=== PATIENT | male | born 1945 | race Caucasian/White ===

== ENCOUNTER 2017-12-08 16:03 | Inpatient (IN) | payer MEDICARE ==
[~2017-12-08] VITALS: Ht 170.2 cm; Wt 101.0 kg
[2017-12-08 17:30] VITALS: BP 101/58
[2017-12-08] MEDS: PLEASE ENTER ALLERGIES MC SCH ×2 (18:00→23:48)
[2017-12-08] MEDS ORDERED: LACTATED RINGERS 500 ML IVBOLUS ONE (18:00)
[2017-12-08] MEDS: INSULIN REGULAR 100 UNITS/ML, 3ML VIAL SQ-INSULIN SCH ×2 (18:00→20:35)
[2017-12-08] MEDS ORDERED: DEXTROSE 4 GM TAB.CHEW PO PRN (18:00)
[2017-12-08] MEDS ORDERED: DEXTROSE 50%, 50ML SYRINGE IVPush PRN (18:00)
[2017-12-08] MEDS: PLEASE ENTER HEIGHT AND WEIGHT MC SCH ×2 (18:00→23:48)
[2017-12-08] MEDS ORDERED: GLUCAGON 1 MG IM PRN (18:00)
[2017-12-08] MEDS ORDERED: ONDANSETRON 2MG/ML, 2ML IVPush PRN (18:00)
[2017-12-08 20:00] VITALS: BP 93/54
[2017-12-08] MEDS: PIPERACILLIN/TAZO/PMX 3.375GM 50 ML IV SCH (22:04)
[2017-12-08] MEDS: SODIUM CHLORIDE FLUSH 10ML SYR IVF SCH (22:04)
[2017-12-08] MEDS: LACTATED RINGERS 1,000 ML IV SCH (22:04)
[2017-12-08 22:10] VITALS: BP 110/62
[2017-12-09 02:00] VITALS: BP 116/68
[2017-12-09] MEDS ORDERED: FOLI-17 PO (04:13)
[2017-12-09] MEDS ORDERED: FURO20TA3 PO (04:13)
[2017-12-09] MEDS ORDERED: HYDR25TA6 PO (04:13)
[2017-12-09] MEDS ORDERED: BENA40TA2 PO (04:13)
[2017-12-09] MEDS ORDERED: TERA10CA3 PO (04:13)
[2017-12-09] MEDS ORDERED: FERR325T5 PO (04:13)
[2017-12-09] MEDS ORDERED: SIMV20TA3 PO (04:13)
[2017-12-09] MEDS ORDERED: ASPI-496 PO (04:13)
[2017-12-09] MEDS ORDERED: AMLO10TA2 PO (04:13)
[2017-12-09] MEDS ORDERED: METF10002 PO (04:13)
[2017-12-09] MEDS ORDERED: LOPE2CAP3 PO (04:13)
[2017-12-09] MEDS ORDERED: POTA10TA11 PO (04:13)
[2017-12-09] MEDS: LACTATED RINGERS 1,000 ML IV SCH (06:04)
[2017-12-09] MEDS: PIPERACILLIN/TAZO/PMX 3.375GM 50 ML IV SCH ×3 (06:05→21:10)
[2017-12-09] MEDS: INSULIN REGULAR 100 UNITS/ML, 3ML VIAL SQ-INSULIN SCH ×4 (07:00→20:32)
[2017-12-09 07:06] LABS: MEAN CORPUSCULAR HEMOGLOBIN 30.1 pg (27.5-34.5); MEAN CORPUSCULAR HGB CONC 33.1 g/dL (33.2-36.2); MEAN PLATELET VOLUME 9.1 fL (7.4-10.4); PLATELET COUNT 129 x10^3/uL (130-400); RED BLOOD COUNT 4.13 x10^6/uL (4.38-5.82); RED CELL DISTRIBUTION WIDTH 14.1 % (9.4-14.8)
[2017-12-09 07:16] LABS: ANION GAP 10 mmol/L (5-15); CALCIUM 7.6 mg/dL (8.5-10.1); CHLORIDE 103 mmol/L (98-107); CREATININE 1.56 mg/dL (0.7-1.3)
[2017-12-09 08:12] LABS: MD YES
[2017-12-09 08:17] LABS: BANDS%(MANUAL) 12 % (0-7); BASOS% (MANUAL) 1 % (0-1); LYMPHS% (MANUAL) 2 % (22-44); MONOS% (MANUAL) 3 % (2-9); SEGS% (MANUAL) 82 % (42-75)
[2017-12-09 08:19] LABS: ANISOCYTOSIS 1+
[2017-12-09 08:20] LABS: ACANTHOCYTES 1+; OVALOCYTES 1+
[2017-12-09 08:22] LABS: <PLATELET ESTIMATE> DECREASED; <PLT MORPHOLOGY> NORMAL PLT MORPH; HYPERSEG PMNs 1+
[2017-12-09] MEDS: SODIUM CHLORIDE FLUSH 10ML SYR IVF SCH ×2 (09:00→21:12)
[2017-12-09 09:29] VITALS: BP 115/71
[2017-12-09] MEDS ORDERED: ACETAMINOPHEN 325 MG TABLET PO PRN (10:00)
[2017-12-09] MEDS: PLEASE ENTER HEIGHT AND WEIGHT MC SCH (10:00)
[2017-12-09] MEDS: PLEASE ENTER ALLERGIES MC SCH (10:00)
[2017-12-09] MEDS ORDERED: MAGNESIUM SULFATE PMX 2GM/50ML 50 ML IV ONE (11:00)
[2017-12-09] MEDS: POTASSIUM CHLORIDE 20 MEQ TAB.ER.PRT PO SCH ×2 (12:25→14:59)
[2017-12-09] MEDS: POTASSIUM CHLORIDE 40 MEQ in LACTATED RINGERS 1,000 ML IV SCH ×2 (12:25→23:24)
[2017-12-09 12:41] LABS: FOLATE LEVEL > 20.0 ng/mL (3.1-17.5)
[2017-12-09 13:17] VITALS: BP 93/56
[2017-12-09 18:00] LABS: MICROSCOPIC INDICATED
[2017-12-09 18:02] LABS: CULTURE INDICATED? NO
[2017-12-09 18:32] VITALS: BP 106/66
[2017-12-09] MEDS: TERAZOSIN 5MG CAPSULE PO SCH (21:00)
[2017-12-09] MEDS: SIMVASTATIN 20 MG TABLET PO SCH (21:12)
[2017-12-10 00:52] VITALS: BP 104/62
[2017-12-10 05:28] LABS: ANION GAP 9 mmol/L (5-15); CALCIUM 7.7 mg/dL (8.5-10.1); CHLORIDE 103 mmol/L (98-107); CREATININE 1.39 mg/dL (0.7-1.3)
[2017-12-10] MEDS: PIPERACILLIN/TAZO/PMX 3.375GM 50 ML IV SCH ×3 (06:10→23:32)
[2017-12-10] MEDS: INSULIN REGULAR 100 UNITS/ML, 3ML VIAL SQ-INSULIN SCH ×4 (07:00→21:00)
[2017-12-10 08:50] VITALS: BP 89/54
[2017-12-10] MEDS: ASPIRIN 81 MG TABLET EC PO SCH (09:05)
[2017-12-10] MEDS: SODIUM CHLORIDE FLUSH 10ML SYR IVF SCH ×2 (09:05→21:20)
[2017-12-10] MEDS: FOLIC ACID 1 MG TABLET PO SCH (09:05)
[2017-12-10 09:06] VITALS: BP 104/62
[2017-12-10] MEDS ORDERED: HEPARIN 5,000 UNITS/ML, 1ML SQ SCH (12:30)
[2017-12-10] MEDS: POTASSIUM CHLORIDE 40 MEQ in LACTATED RINGERS 1,000 ML IV SCH (13:03)
[2017-12-10 14:03] VITALS: BP 109/69
[2017-12-10] MEDS: ENOXAPARIN 100 MG/ML SQ SCH (17:06)
[2017-12-10 19:36] VITALS: BP 109/74
[2017-12-10] MEDS: SIMVASTATIN 20 MG TABLET PO SCH (21:20)
[2017-12-10] MEDS: TERAZOSIN 5MG CAPSULE PO SCH (21:20)
[2017-12-11 02:00] VITALS: BP 99/63
[2017-12-11] MEDS: ENOXAPARIN 100 MG/ML SQ SCH ×2 (04:51→17:36)
[2017-12-11] MEDS: POTASSIUM CHLORIDE 40 MEQ in LACTATED RINGERS 1,000 ML IV SCH (04:51)
[2017-12-11 06:01] LABS: MEAN CORPUSCULAR HEMOGLOBIN 30.4 pg (27.5-34.5); MEAN CORPUSCULAR HGB CONC 33.8 g/dL (33.2-36.2); MEAN PLATELET VOLUME 10.1 fL (7.4-10.4); PLATELET COUNT 115 x10^3/uL (130-400); RED BLOOD COUNT 3.73 x10^6/uL (4.38-5.82); RED CELL DISTRIBUTION WIDTH 14.7 % (9.4-14.8)
[2017-12-11 06:03] LABS: CHLORIDE 107 mmol/L (98-107)
[2017-12-11 06:11] LABS: ANION GAP 9 mmol/L (5-15); CALCIUM 7.3 mg/dL (8.5-10.1); CREATININE 1.19 mg/dL (0.7-1.3)
[2017-12-11 06:29] LABS: MD YES
[2017-12-11 06:31] LABS: ANISOCYTOSIS 1+; BAND#(MANUAL) 0.13 x10^3/uL; BANDS%(MANUAL) 1 % (0-7); EOS#(MANUAL) 0.26 x10^3/uL (0.0-0.4); EOS% (MANUAL) 2 % (1-7); LYMPH#(MANUAL) 1.41 x10^3/uL (1-3.4); LYMPHS% (MANUAL) 11 % (22-44); MONOS#(MANUAL) 0.64 x10^3/uL (0.3-2.7); MONOS% (MANUAL) 5 % (2-9); SEG#(MANUAL) 10.37 x10^3/uL (1.8-6.8); SEGS% (MANUAL) 81 % (42-75)
[2017-12-11 06:32] LABS: OVALOCYTES 1+
[2017-12-11 06:33] LABS: <PLATELET ESTIMATE> DECREASED; <PLT MORPHOLOGY> NORMAL PLT MORPH
[2017-12-11 06:34] LABS: POLYCHROMASIA 1+
[2017-12-11] MEDS: INSULIN REGULAR 100 UNITS/ML, 3ML VIAL SQ-INSULIN SCH ×2 (07:00→11:00)
[2017-12-11 07:45] VITALS: BP 106/65
[2017-12-11] MEDS: FOLIC ACID 1 MG TABLET PO SCH (08:09)
[2017-12-11] MEDS: ASPIRIN 81 MG TABLET EC PO SCH (08:09)
[2017-12-11] MEDS: SODIUM CHLORIDE FLUSH 10ML SYR IVF SCH ×2 (08:10→21:05)
[2017-12-11] MEDS: PIPERACILLIN/TAZO/PMX 3.375GM 50 ML IV SCH ×2 (09:59→17:37)
[2017-12-11] MEDS ORDERED: PHARMACOKINETIC CONSULTATION MC ONE (11:00)
[2017-12-11] MEDS ORDERED: VANCOMYCIN PER PHARMACY MC PRN (11:00)
[2017-12-11] MEDS ORDERED: PHARMACOKINETIC MONITORING MC PRN (11:00)
[2017-12-11] MEDS ORDERED: VANCOMYCIN 2,000 MG in SODIUM CHLORIDE 0.9% 500 ML IV SCH (12:00)
[2017-12-11 13:03] VITALS: BP 109/67
[2017-12-11 14:33] LABS: CLOSTRIDIUM DIFFICILE ANTIGEN NEGATIVE; CLOSTRIDIUM DIFFICILE TOXIN NEGATIVE (Negative)
[2017-12-11 20:11] VITALS: BP 125/71
[2017-12-11] MEDS: SIMVASTATIN 20 MG TABLET PO SCH (21:04)
[2017-12-11] MEDS: TERAZOSIN 5MG CAPSULE PO SCH (21:05)
[2017-12-12] MEDS: PIPERACILLIN/TAZO/PMX 3.375GM 50 ML IV SCH ×2 (01:23→09:47)
[2017-12-12 03:58] VITALS: BP 110/62
[2017-12-12] MEDS: ENOXAPARIN 100 MG/ML SQ SCH (04:46)
[2017-12-12 05:07] LABS: ANION GAP 8 mmol/L (5-15); CALCIUM 7.3 mg/dL (8.5-10.1); CHLORIDE 107 mmol/L (98-107); CREATININE 1.11 mg/dL (0.7-1.3)
[2017-12-12 05:10] LABS: MEAN CORPUSCULAR HEMOGLOBIN 30.2 pg (27.5-34.5); MEAN CORPUSCULAR HGB CONC 33.5 g/dL (33.2-36.2); MEAN CORPUSCULAR VOLUME 90.4 fL (81-97); MEAN PLATELET VOLUME 10.5 fL (7.4-10.4); PLATELET COUNT 136 x10^3/uL (130-400); RED BLOOD COUNT 3.71 x10^6/uL (4.38-5.82); RED CELL DISTRIBUTION WIDTH 14.6 % (9.4-14.8)
[2017-12-12 05:59] LABS: BASOPHILS # (AUTO) 0.02 x10^3/uL (0-0.1); BASOPHILS % (AUTO) 0 % (0-1); EOSINOPHILS # (AUTO) 0.05 x10^3/uL (0-0.4); EOSINOPHILS % (AUTO) 0 % (1-7); LYMPHOCYTES # (AUTO) 0.95 x10^3/uL (1-3.4); LYMPHOCYTES % (AUTO) 7 % (22-44); MD SCAN; MONOCYTES # (AUTO) 0.77 x10^3/uL (0.2-0.8); MONOCYTES % (AUTO) 6 % (2-9); NEUTROPHILS # (AUTO) 11.27 x10^3/uL (1.8-6.8); NEUTROPHILS % (AUTO) 86 % (42-75)
[2017-12-12 06:59] VITALS: BP 112/69
[2017-12-12] MEDS: ASPIRIN 81 MG TABLET EC PO SCH (09:47)
[2017-12-12] MEDS: FOLIC ACID 1 MG TABLET PO SCH (09:47)
[2017-12-12] MEDS: SODIUM CHLORIDE FLUSH 10ML SYR IVF SCH (09:47)
[2017-12-12] MEDS ORDERED: LEVOFLOXACIN/PMX 750MG/150ML 150 ML IV SCH (10:30)
[2017-12-12] MEDS ORDERED: SULFAMETH./TRIMETHOPRIM DS 800MG/160MG TABLET PO SCH (10:30)
[2017-12-12 13:15] VITALS: BP 114/71
[2017-12-12] MEDS ORDERED: [UNRECOGNIZED DRUG - CODE] IV (14:40)
[2017-12-12] MEDS ORDERED: APIX5TAB PO (14:40)
[2017-12-12] MEDS ORDERED: APIXABAN 5 MG TABLET PO SCH (21:00)
== END 2017-12-12 18:06 | DRG 871 ==
LOC: 4WST 17:25
PROVIDERS: ADMIT Internal Medicine; ATTEND Family Medicine
DX: A41.9 Sepsis, unspecified organism (principal); N17.0 Acute kidney failure with tubular necrosis; E87.2 Acidosis; L03.115 Cellulitis of right lower limb; I82.4Z1 Acute embolism and thrombosis of unspecified deep veins of right distal lower extremity; L03.031 Cellulitis of right toe; D64.9 Anemia, unspecified; E11.22 Type 2 diabetes mellitus with diabetic chronic kidney disease; E66.01 Morbid (severe) obesity due to excess calories; E87.6 Hypokalemia; I12.9 Hypertensive chronic kidney disease with stage 1 through stage 4 chronic kidney disease, or unspecified chronic kidney disease; N18.9 Chronic kidney disease, unspecified; B95.0 Streptococcus, group A, as the cause of diseases classified elsewhere; Z79.01 Long term (current) use of anticoagulants; Z68.35 Body mass index [BMI] 35.0-35.9, adult; Z90.49 Acquired absence of other specified parts of digestive tract
CPT/HCPCS: 36415; 71045; 80048; 80202; 81001; 82140; 82607; 82746; 82962; 83605; 83735; 85025; 87324; J1644; J1650; J1956; J2543; J3370; J3480; J7120; J3475; J7040